=== PATIENT | male | born 1955 | race Caucasian/White ===

== ENCOUNTER 2018-11-30 06:41 | Day surgery (SDC) | payer MEDICARE, MEDICAID ==
[~2018-11-30] VITALS: Ht 200.7 cm; Wt 122.7 kg
[~2018-11-30 06:41] MED LIST: QUET25TA PO
[2018-11-30 06:50] VITALS: BP 138/77
[2018-11-30] MEDS ORDERED: fentaNYL/PF 50MCG/1 ML 2ML syringe ONE (07:15)
[2018-11-30] MEDS ORDERED: MIDAZolam 5mg/5ml vial ONE (07:15)
[2018-11-30] MEDS ORDERED: LIDOcaine Viscous 15ml cup ONE (07:15)
[2018-11-30 09:09] VITALS: BP 98/68
[2018-11-30 09:19] VITALS: BP 126/82
[2018-11-30 09:29] VITALS: BP 122/77
[2018-11-30 09:39] VITALS: BP 115/77
== END 2018-11-30 10:05 | disposition home or self-care (01) ==
LOC: GI LAB 06:41
PROVIDERS: ATTEND Internal Medicine Gastroenterology
DX: Z13.810 Encounter for screening for upper gastrointestinal disorder (principal); D12.3 Benign neoplasm of transverse colon; K57.30 Diverticulosis of large intestine without perforation or abscess without bleeding; K21.0 Gastro-esophageal reflux disease with esophagitis; G47.33 Obstructive sleep apnea (adult) (pediatric); M19.90 Unspecified osteoarthritis, unspecified site; F15.11 Other stimulant abuse, in remission; F32.9 Major depressive disorder, single episode, unspecified; Z88.0 Allergy status to penicillin; Z87.891 Personal history of nicotine dependence; Z86.19 Personal history of other infectious and parasitic diseases; Z87.19 Personal history of other diseases of the digestive system; Z98.890 Other specified postprocedural states; Z79.899 Other long term (current) drug therapy; Z82.3 Family history of stroke; Z83.3 Family history of diabetes mellitus
CPT/HCPCS: 43239; 45385; 99153; G0500; J2250; J3010; J7030; 88305; 99152; A4620

== ENCOUNTER 2024-02-23 21:17 | Emergency (ER) | payer MEDICARE, MEDICAID ==
[~2024-02-23] VITALS: Ht 198.1 cm; Wt 128.6 kg
[2024-02-23 22:07] LABS: BASOPHILS % (AUTO) 0.4 % (0-1); EOSINOPHILS # (AUTO) 0.1 X10'3 (0-0.9); EOSINOPHILS % (AUTO) 1.7 % (0-6); HEMATOCRIT 46.4 % (42.0-52.0); HEMOGLOBIN 15.6 g/dl (14.0-17.9); LYMPHOCYTES # (AUTO) 1.6 X10'3 (1.1-4.8); LYMPHOCYTES % (AUTO) 29.8 % (21-51); MEAN CORPUSCULAR HEMOGLOBIN 31.9 PG (27.0-31.0); MEAN CORPUSCULAR HGB CONC 33.7 g/dL (33.0-36.5); MEAN CORPUSCULAR VOLUME 94.7 FL (78-98); MEAN PLATELET VOLUME 8.9 FL (7.4-10.4); MONOCYTES # (AUTO) 0.5 X10'3 (0-0.9); MONOCYTES % (AUTO) 9.2 % (2-12); NEUTROPHILS # (AUTO) 3.1 X10'3 (1.8-7.7); NEUTROPHILS % (AUTO) 58.9 % (42-75); PLATELET COUNT 101 X10'3 (140-440); RED CELL DISTRIBUTION WIDTH 15.5 % (11.5-14.5); WHITE BLOOD COUNT 5.3 X10'3 (4.5-11.0)
[2024-02-23 22:15] LABS: ALBUMIN 3.3 G/DL (3.4-5.0); ANION GAP 10 (8-16); BLOOD UREA NITROGEN 19 MG/DL (7-18); BUN/CREATININE RATIO 20.9 (10.0-20.0); CALCIUM 8.9 MG/DL (8.5-10.1); CHLORIDE 106 MMOL/L (99-107); CREATININE 0.91 MG/DL (0.60-1.10); GLUCOSE 105 MG/DL (70-104); SODIUM 140 MMOL/L (135-145); TOTAL CARBON DIOXIDE 24.4 MMOL/L (24-32); eCRCL 100 ML/MIN; eGFR 83 ML/MIN
[2024-02-23] MEDS: LORazepam 1 MG tablet PO ONE (23:09)
[2024-02-23 23:18] LABS: PRO BRAIN NATRIURETIC PEPTIDE 243 PG/ML (0-125)
[2024-02-23 23:36] LABS: D-DIMER 1.07 MG/L FEU (0-0.50)
[2024-02-24] MEDS ORDERED: iohexol 350MG/ML 100ml bottle IV ONE (00:01)
[2024-02-24 03:32] VITALS: BP 114/85; PULSE 78; RESP 18; TEMP 98.3; O2SAT 96
== END 2024-02-24 03:33 | disposition home or self-care (01) ==
LOC: ER 21:18
DX: R06.00 Dyspnea, unspecified (principal); Z88.0 Allergy status to penicillin; Z79.899 Other long term (current) drug therapy
CPT/HCPCS: 36415; 71045; 71275; 80048; 83880; 84484; 85025; 85379; 93005; 99285; J3490; Q9967